=== PATIENT | male | born 1980 | race Caucasian/White ===

== ENCOUNTER 2021-08-24 06:19 | Day surgery (SDC) | payer OTHER ==
[~2021-08-24] VITALS: Ht 175.3 cm; Wt 99.3 kg
[~2021-08-24 06:19] MED LIST: LISI20 PO; Percocet 5-3251 EACH PO
[2021-08-24] MEDS ORDERED: Lisinopril2.5 MG PO (06:32)
--- NOTE | 2021-08-24 07:36 | NUR ---
08/24/21 0736 Donis Baez BUPIVACAINE 0.5% 30 MLS MIXED W/ 0.15 ML EPI PER ORDER TO CONSTITUTE BUPIVACAINE 0.5% 1:200,000 FOR INJECTION AT OPSITE BY DR ARCE. 30 MLS LOCAL INJECTED.
== END 2021-08-24 08:48 | disposition home or self-care (01) ==
LOC: ORSCSDS 06:19
PROVIDERS: Podiatrist Foot & Ankle Surgery
PROC: 0LBS0ZZ Excision of Right Ankle Tendon, Open Approach (ICD-10-PCS; principal; 2021-08-24 07:30)
DX: M67.471 Ganglion, right ankle and foot (principal); I10 Essential (primary) hypertension; Z79.899 Other long term (current) drug therapy; E66.9 Obesity, unspecified; Z68.33 Body mass index [BMI] 33.0-33.9, adult
CPT/HCPCS: 88304; J0171; J0690; J1100; J1885; J2250; J2405; J2704; J3010; J7120

== ENCOUNTER → 2023-08-12 | Outpatient (CLI) | payer OTHER ==
[~2023-08-12] MED LIST changes: +Lisinopril2.5 MG PO
[2023-08-12 10:44] LABS: BASOPHILS ABSOLUTE AUTO 0.05 K/mm3 (0.00-0.23); BASOPHILS PERCENT AUTO 1 % (0-2); EOSINOPHILS ABSOLUTE AUTO 0.18 K/mm3 (0.00-0.68); EOSINOPHILS PERCENT AUTO 5 % (0-6); Hematocrit 39.3 % (37.0-53.0); Hemoglobin 14.1 g/dL (13.5-17.5); IMMATURE GRAN ABSOLUTE AUTO 0.07 K/mm3 (0.00-0.10); IMMATURE GRAN PERCENT AUTO 2 % (0-1); LYMPHOCYTES ABSOLUTE AUTO 0.88 K/mm3 (0.84-5.20); LYMPHOCYTES PERCENT AUTO 23 % (21-46); MONOCYTES ABSOLUTE AUTO 0.43 K/mm3 (0.16-1.47); MONOCYTES PERCENT AUTO 11 % (4-13); Mean Corpuscular HGB 31.5 pg (26.0-34.0); Mean Corpuscular HGB Conc 35.9 g/dL (31.5-36.5); Mean Corpuscular Volume 88 fL (80-100); Mean Platelet Volume 8.4 fL (9.1-12.4); NEUTROPHILS PERCENT AUTO 59 % (41-73); Platelet Count 265 K/mm3 (150-400); RDW Standard Deviation 35.1 fL (35.1-46.3); Red Blood Cell Count 4.47 M/mm3 (4.30-5.90); White Blood Cell Count 3.91 K/mm3 (4.00-11.30)
[2023-08-12 11:08] LABS: Albumin/Globulin Ratio 1.2 (0.8-1.8); Bilirubin, Total 0.4 mg/dL (0.1-1.0); Calcium, Blood 9.2 mg/dL (8.5-10.1); Creatinine, Blood 1.15 mg/dL (0.60-1.20); Globulin, Blood 3.4 g/dL (2.2-4.0); Potassium, Blood 4.5 mmol/L (3.5-5.5); Thyroid Stimulating Hormone 0.951 uIU/mL (0.360-4.800); Total Protein, Blood 7.4 g/dL (6.4-8.2)
== END ==
LOC: LAB 10:40 → LAB SHORT 10:40
PROVIDERS: Physician Assistant
DX: R53.83 Other fatigue (principal)
CPT/HCPCS: 80053; 84443; 84550; 85025; 85651; 86140

== ENCOUNTER 2024-05-30 19:23 | Emergency (ER) | payer OTHER ==
[~2024-05-30] VITALS: Ht 175.3 cm; Wt 95.2 kg
[2024-05-30 20:08] LABS: BASOPHILS ABSOLUTE AUTO 0.05 K/mm3 (0.00-0.23); BASOPHILS PERCENT AUTO 1 % (0-2); EOSINOPHILS ABSOLUTE AUTO 0.15 K/mm3 (0.00-0.68); EOSINOPHILS PERCENT AUTO 2 % (0-6); Hematocrit 43.4 % (37.0-53.0); Hemoglobin 15.1 g/dL (13.5-17.5); IMMATURE GRAN ABSOLUTE AUTO 0.02 K/mm3 (0.00-0.10); IMMATURE GRAN PERCENT AUTO 0 % (0-1); LYMPHOCYTES ABSOLUTE AUTO 1.86 K/mm3 (0.84-5.20); LYMPHOCYTES PERCENT AUTO 23 % (21-46); MONOCYTES ABSOLUTE AUTO 0.63 K/mm3 (0.16-1.47); MONOCYTES PERCENT AUTO 8 % (4-13); Mean Corpuscular HGB 30.6 pg (26.0-34.0); Mean Corpuscular HGB Conc 34.8 g/dL (31.5-36.5); Mean Corpuscular Volume 88 fL (80-100); NEUTROPHILS ABSOLUTE AUTO 5.37 K/mm3 (1.96-9.15); NEUTROPHILS PERCENT AUTO 67 % (41-73); Platelet Count 243 K/mm3 (150-400); RDW Coefficient Variation 11.4 % (11.7-14.2); RDW Standard Deviation 36.6 fL (35.1-46.3); Red Blood Cell Count 4.93 M/mm3 (4.30-5.90); White Blood Cell Count 8.08 K/mm3 (4.00-11.30)
[2024-05-30 20:28] LABS: Albumin, Blood 4.2 g/dL (3.4-5.0); Albumin/Globulin Ratio 1.4 (0.8-1.8); Bilirubin, Total 0.3 mg/dL (0.1-1.0); Bun/Creatinine Ratio 18.1 (12.0-20.0); Calcium, Blood 9.3 mg/dL (8.5-10.1); Creatinine, Blood 0.89 mg/dL (0.60-1.20); Globulin, Blood 3.1 g/dL (2.2-4.0); Potassium, Blood 3.8 mmol/L (3.5-5.5); Total Protein, Blood 7.3 g/dL (6.4-8.2)
[2024-05-30] MEDS ORDERED: Ketorolac Tromethamine 15mg Vial IV ONE (22:40)
[2024-05-30] MEDS ORDERED: Doxycycline Hyclate 100 MG TAB PO ONE (22:40)
[2024-05-30 23:15] VITALS: BP 118/90
[2024-05-30] MEDS ORDERED: DOXY100 PO (23:25)
[2024-05-30] MEDS ORDERED: IBUP600 PO (23:25)
== END 2024-05-30 23:38 | disposition home or self-care (01) ==
LOC: ER 19:23
PROVIDERS: Student in an Organized Health Care Education/Training Program
DX: R07.81 Pleurodynia (principal); J18.1 Lobar pneumonia, unspecified organism; Z88.5 Allergy status to narcotic agent; Z79.899 Other long term (current) drug therapy; I10 Essential (primary) hypertension; Z87.891 Personal history of nicotine dependence
CPT/HCPCS: 71046; 80053; 83690; 84484; 85025; 93005; 93010; 96374; 99285-25; A9270; J1885

== ENCOUNTER → 2024-07-14 | Outpatient (CLI) | payer OTHER ==
[~2024-07-14] MED LIST changes: +DOXY100 PO; +IBUP600 PO
[2024-07-14 18:36] LABS: BASOPHILS ABSOLUTE AUTO 0.04 K/mm3 (0.00-0.23); BASOPHILS PERCENT AUTO 1 % (0-2); EOSINOPHILS PERCENT AUTO 2 % (0-6); Hematocrit 43.2 % (37.0-53.0); Hemoglobin 15.3 g/dL (13.5-17.5); IMMATURE GRAN ABSOLUTE AUTO 0.01 K/mm3 (0.00-0.10); IMMATURE GRAN PERCENT AUTO 0 % (0-1); LYMPHOCYTES PERCENT AUTO 35 % (21-46); MONOCYTES ABSOLUTE AUTO 0.42 K/mm3 (0.16-1.47); MONOCYTES PERCENT AUTO 7 % (4-13); Mean Corpuscular HGB 31.2 pg (26.0-34.0); Mean Corpuscular HGB Conc 35.4 g/dL (31.5-36.5); Mean Corpuscular Volume 88 fL (80-100); Mean Platelet Volume 8.8 fL (9.1-12.4); NEUTROPHILS ABSOLUTE AUTO 3.27 K/mm3 (1.96-9.15); NEUTROPHILS PERCENT AUTO 55 % (41-73); Platelet Count 235 K/mm3 (150-400); RDW Coefficient Variation 11.7 % (11.7-14.2); RDW Standard Deviation 37.2 fL (35.1-46.3); White Blood Cell Count 5.94 K/mm3 (4.00-11.30)
[2024-07-14 18:43] LABS: Bun/Creatinine Ratio 19.6 (12.0-20.0); Calcium, Blood 9.7 mg/dL (8.5-10.1); Creatinine, Blood 1.07 mg/dL (0.60-1.20); Potassium, Blood 4.1 mmol/L (3.5-5.5)
== END | disposition home or self-care (01) ==
LOC: LAB 18:32 → LAB SHORT 18:32
PROVIDERS: Physician Assistant Surgical
DX: R07.89 Other chest pain (principal)
CPT/HCPCS: 80048; 84484; 85025

== ENCOUNTER 2025-05-27 10:06 | Observation (INO) | payer OTHER ==
[2025-05-27] VITALS (14 sets, daily range): BP systolic 99–151; BP diastolic 62–83
[~2025-05-27] VITALS: Ht 175.3 cm; Wt 96.6 kg
[~2025-05-27 10:06] MED LIST changes: -AMOCLA875 PO; -OXYC5 PO
[2025-05-27] MEDS ORDERED: Ondansetron HCl 2 MG / ML 2ML Vial IV PRN ×2 (10:45→14:40)
[2025-05-27] MEDS ORDERED: FLU VACC TS2025-26(6MOS UP)/PF 45 MCG/0.5 ML SYRINGE IM SCH (10:45)
[2025-05-27] MEDS ORDERED: FentaNYL Citrate 50 MCG/ML 2 ML Injection IV PRN ×3 (10:45→14:40)
[2025-05-27] MEDS ORDERED: Ampicillin Sod/Sulbactam Sod 3 GM in NS 100 ML IV SCH (11:00)
[2025-05-27] MEDS ORDERED: Bupivacaine 0.5% HCl 5 MG/ML 30MLVIAL ONE (13:39)
[2025-05-27] MEDS ORDERED: Rocuronium Bromide 10 MG/ML 5ML Injection IV ONE (13:43)
[2025-05-27] MEDS ORDERED: FentaNYL Citrate 50 MCG/ML 2 ML Injection ONE (13:43)
--- NOTE | 2025-05-27 13:43 | NUR ---
FLUSHED LAC IV SITE WITH 10NS/PATENT.
[2025-05-27] MEDS ORDERED: Midazolam HCl 1MG / ML 2ML Vial ONE (13:44)
[2025-05-27] MEDS ORDERED: Ondansetron HCl 2 MG / ML 2ML Vial ONE (14:07)
[2025-05-27] MEDS ORDERED: Dexamethasone Sod Phos 10 MG/ML 1ML VIAL ONE (14:07)
[2025-05-27] MEDS ORDERED: Ketorolac Tromethamine 30mg Vial ONE (14:07)
[2025-05-27] MEDS ORDERED: Sugammadex Sodium 200 MG/2ML SDV (100 MG/ML) ONE (14:15)
[2025-05-27] MEDS ORDERED: HYDROmorphone HCl/Pf 1MG SYR IV PRN ×2 (14:40)
[2025-05-27] MEDS ORDERED: HYDROmorphone HCl/Pf 1MG SYR ONE (14:41)
--- NOTE | 2025-05-27 18:56 | NUR ---
SHIFT SUMMARY POD0 LAP APPY, A/OX4, VSS, TOLERATING PO, PAIN MANAGED PER EMAR, IV ABX ORDERED, PT HAD LOW GRADE FEVER THIS EVENING WITH TMAX 100.0. DISCUSSED WITH PATIENT AND HE EXPRESSED DESIRE TO STAY AND DISCHARGE IN THE AM. LAP SITES C/D/I EXCEPT AMBILICAL LAP SITE THAT HAD A SCANT AMT OF DRAINAGE. NO ACUTE EVENTS THIS SHIFT, CALL LIGHT IN REACH.
[2025-05-28 03:50] VITALS: BP 102/64
[2025-05-28 04:40] LABS: BASOPHILS ABSOLUTE AUTO 0.03 K/mm3 (0.00-0.23); BASOPHILS PERCENT AUTO 0 % (0-2); EOSINOPHILS ABSOLUTE AUTO 0.00 K/mm3 (0.00-0.68); EOSINOPHILS PERCENT AUTO 0 % (0-6); Hematocrit 37.3 % (37.0-53.0); Hemoglobin 13.2 g/dL (13.5-17.5); IMMATURE GRAN ABSOLUTE AUTO 0.02 K/mm3 (0.00-0.10); IMMATURE GRAN PERCENT AUTO 0 % (0-1); LYMPHOCYTES ABSOLUTE AUTO 0.92 K/mm3 (0.84-5.20); LYMPHOCYTES PERCENT AUTO 10 % (21-46); MONOCYTES ABSOLUTE AUTO 0.84 K/mm3 (0.16-1.47); MONOCYTES PERCENT AUTO 9 % (4-13); Mean Corpuscular HGB Conc 35.4 g/dL (31.5-36.5); Mean Corpuscular Volume 91 fL (80-100); NEUTROPHILS ABSOLUTE AUTO 7.77 K/mm3 (1.96-9.15); NEUTROPHILS PERCENT AUTO 81 % (41-73); NRBC ABSOLUTE 0.00 K/mm3 (0.00-0.02); NRBC Auto 0.0 /100 WBC (0.0-0.2); Platelet Count 180 K/mm3 (150-400); RDW Coefficient Variation 11.1 % (11.7-14.2); RDW Standard Deviation 37.0 fL (35.1-46.3)
[2025-05-28 05:14] LABS: Anion Gap 7.0 mmol/L (3-11); Blood Urea Nitrogen 14.0 mg/dL (8-24); CO2, Blood 29.0 mmol/L (21-32); Calcium, Blood 8.6 mg/dL (8.5-10.1); Chloride, Blood 99.0 mmol/L (98-108); Creatinine, Blood 1.23 mg/dL (0.60-1.20); Glucose, Blood 132.0 mg/dL (70-99); Potassium, Blood 4.1 mmol/L (3.5-5.5); Sodium, Blood 131.0 mmol/L (136-145)
[2025-05-28 05:22] LABS: Source, Urine Clean Catch
--- NOTE | 2025-05-28 05:26 | NUR ---
SHIFT SUMMARY AOX4. POD 1-LAP APPY. x3 LAP SITES C/D/I W/TISSUE ADHESIVE, NO DRAINAGE NOTED. SCANT AMOUNT DRIED BLOOD AROUND UMBILICUS INCISION NOTED, UNCHANGED SINCE BEGINNING OF SHIFT. PT DENIES N/V, TOLERATING REG DIET. REPORTS 9/10 PAIN W/MOVEMENT OTHERWISE STATES PAIN 4/10. REPORTED INCREASED "PRESSURE" & ASKED IF THERE WAS ANYTHING HE COULD TAKE. DR JARAMILLO ORDERED SIMETHICONE FOR GAS & SINCE BEING MEDICATED HAS REPORTED GAS RELIEF & STATES PAIN/DISCOMFORT IS MORE TOLERABLE & HAS PASSED FLATUS A COUPLE TIMES. ACTIVE BT. REPORTS FOUL DARK COLOR URINE, STATES LOW BACK FLANK PAIN-INFORMED DR HAYWARD & HE ORDERED UA. VSS, AFEBRILE T/O NIGHT. CALL LIGHT IN REACH & PT ABLE TO MAKE NEEDS KNOWN.
[2025-05-28 05:37] LABS: Bilirubin, Urine Neg (Neg); Color, Urine Yellow (P-Yellow); Glucose Qualitative, Urine Neg (Neg); Ketones, Urine Neg (Neg); Leukocyte Esterase, Urine Neg (Neg); Protein, Urine 1+ (Neg); Specific Gravity, Urine 1.020 (1.003-1.022); Urobilinogen, Urine NORM (Normal)
[2025-05-28 07:22] VITALS: BP 108/72
[2025-05-28] MEDS ORDERED: AMOCLA875 PO (08:08)
[2025-05-28] MEDS ORDERED: OXYC5 PO (08:08)
--- NOTE | 2025-05-28 11:56 | NUR ---
DISCHARGE SUMMARY POD1 LAP APPY, TEMPS IMPROVED OVER NIGHT, HOSPITALIST ROUNDED ON THIS AM AND PATIENT LEFT WITHOUT GOING OVER DISCHARGE PAPERWORK. DISCHARGE INSTRUCTIONS AND INFORMATION HAD BEEN DISCUSSED WITH THE PATIENT BY THIS RN YESTERDAY COVERING HOME CARE AND MEDICATIONS.
== END 2025-05-28 10:28 | disposition home or self-care (01) ==
LOC: SURS 10:06
PROVIDERS: Student in an Organized Health Care Education/Training Program; Surgery; ADMIT Family Medicine
PROC: 0DTJ4ZZ Resection of Appendix, Percutaneous Endoscopic Approach (ICD-10-PCS; principal; 2025-05-27 14:00)
DX: K35.32 Acute appendicitis with perforation, localized peritonitis, and gangrene, without abscess (principal); K38.1 Appendicular concretions; L04.1 Acute lymphadenitis of trunk; I10 Essential (primary) hypertension; E78.5 Hyperlipidemia, unspecified; E87.1 Hypo-osmolality and hyponatremia; R94.4 Abnormal results of kidney function studies; D72.829 Elevated white blood cell count, unspecified; Z87.891 Personal history of nicotine dependence; Z79.899 Other long term (current) drug therapy; Z88.5 Allergy status to narcotic agent; Z88.8 Allergy status to other drugs, medicaments and biological substances
CPT/HCPCS: 36415; 80048; 85025; 88304; A9270; J0295; J1100; J1171; J1885; J2250; J2405; J2704; J3010; J7120

== ENCOUNTER → 2025-05-27 | Outpatient (CLI) | payer OTHER ==
[~2025-05-27] MED LIST changes: +AMOCLA875 PO; +OXYC5 PO
[2025-05-27 08:15] LABS: BASOPHILS ABSOLUTE AUTO 0.03 K/mm3 (0.00-0.23); BASOPHILS PERCENT AUTO 0 % (0-2); EOSINOPHILS ABSOLUTE AUTO 0.12 K/mm3 (0.00-0.68); EOSINOPHILS PERCENT AUTO 1 % (0-6); Hematocrit 41.9 % (37.0-53.0); Hemoglobin 15.0 g/dL (13.5-17.5); IMMATURE GRAN ABSOLUTE AUTO 0.03 K/mm3 (0.00-0.10); IMMATURE GRAN PERCENT AUTO 0 % (0-1); LYMPHOCYTES ABSOLUTE AUTO 0.99 K/mm3 (0.84-5.20); LYMPHOCYTES PERCENT AUTO 8 % (21-46); MONOCYTES ABSOLUTE AUTO 0.92 K/mm3 (0.16-1.47); MONOCYTES PERCENT AUTO 8 % (4-13); Mean Corpuscular HGB Conc 35.8 g/dL (31.5-36.5); Mean Corpuscular Volume 88 fL (80-100); NEUTROPHILS ABSOLUTE AUTO 9.81 K/mm3 (1.96-9.15); NEUTROPHILS PERCENT AUTO 82 % (41-73); NRBC ABSOLUTE 0.00 K/mm3 (0.00-0.02); NRBC Auto 0.0 /100 WBC (0.0-0.2); Platelet Count 211 K/mm3 (150-400); RDW Coefficient Variation 11.1 % (11.7-14.2); RDW Standard Deviation 35.8 fL (35.1-46.3)
[2025-05-27 08:36] LABS: Alanine Aminotransfer (ALT/SGP 63.0 U/L (12-78); Albumin, Blood 4.1 g/dL (3.4-5.0); Albumin/Globulin Ratio 1.2 (0.8-1.8); Anion Gap 11.0 mmol/L (3-11); Aspartate Aminotrans (AST/SGOT 26.0 U/L (12-37); Bilirubin, Total 0.7 mg/dL (0.1-1.0); Blood Urea Nitrogen 10.0 mg/dL (8-24); CO2, Blood 29.0 mmol/L (21-32); Calcium, Blood 9.4 mg/dL (8.5-10.1); Chloride, Blood 101.0 mmol/L (98-108); Creatinine, Blood 1.0 mg/dL (0.60-1.20); Globulin, Blood 3.4 g/dL (2.2-4.0); Glucose, Blood 116.0 mg/dL (70-99); Potassium, Blood 4.2 mmol/L (3.5-5.5); Sodium, Blood 137.0 mmol/L (136-145); Total Protein, Blood 7.5 g/dL (6.4-8.2)
== END | disposition home or self-care (01) ==
LOC: LAB 08:09 → LAB SHORT 08:09
PROVIDERS: Physician Assistant
DX: R10.31 Right lower quadrant pain (principal)
CPT/HCPCS: 80053; 85025

== ENCOUNTER 2025-05-29 21:09 | Inpatient (IN) | payer OTHER ==
[~2025-05-29] VITALS: Ht 175.3 cm; Wt 97.4 kg
[~2025-05-29 21:09] MED LIST changes: +AMOCLA875 PO; +OXYC5 PO
[2025-05-29 22:32] LABS: BASOPHILS ABSOLUTE AUTO 0.04 K/mm3 (0.00-0.23); BASOPHILS PERCENT AUTO 0 % (0-2); EOSINOPHILS ABSOLUTE AUTO 0.19 K/mm3 (0.00-0.68); EOSINOPHILS PERCENT AUTO 2 % (0-6); Hematocrit 37.2 % (37.0-53.0); Hemoglobin 13.4 g/dL (13.5-17.5); IMMATURE GRAN ABSOLUTE AUTO 0.04 K/mm3 (0.00-0.10); IMMATURE GRAN PERCENT AUTO 0 % (0-1); LYMPHOCYTES ABSOLUTE AUTO 0.94 K/mm3 (0.84-5.20); LYMPHOCYTES PERCENT AUTO 10 % (21-46); MONOCYTES ABSOLUTE AUTO 0.52 K/mm3 (0.16-1.47); MONOCYTES PERCENT AUTO 6 % (4-13); Mean Corpuscular HGB Conc 36.0 g/dL (31.5-36.5); Mean Corpuscular Volume 87 fL (80-100); NEUTROPHILS ABSOLUTE AUTO 7.52 K/mm3 (1.96-9.15); NEUTROPHILS PERCENT AUTO 81 % (41-73); NRBC ABSOLUTE 0.00 K/mm3 (0.00-0.02); NRBC Auto 0.0 /100 WBC (0.0-0.2); RDW Coefficient Variation 11.1 % (11.7-14.2); RDW Standard Deviation 35.8 fL (35.1-46.3)
[2025-05-29 22:33] LABS: Platelet Count 207 K/mm3 (150-400)
[2025-05-29 22:46] LABS: Alanine Aminotransfer (ALT/SGP 32.0 U/L (12-78); Albumin, Blood 3.1 g/dL (3.4-5.0); Albumin/Globulin Ratio 0.7 (0.8-1.8); Anion Gap 10.0 mmol/L (3-11); Aspartate Aminotrans (AST/SGOT 22.0 U/L (12-37); Bilirubin, Total 0.8 mg/dL (0.1-1.0); Blood Urea Nitrogen 13.0 mg/dL (8-24); CO2, Blood 22.0 mmol/L (21-32); Calcium, Blood 9.1 mg/dL (8.5-10.1); Chloride, Blood 102.0 mmol/L (98-108); Creatinine, Blood 0.94 mg/dL (0.60-1.20); Globulin, Blood 4.2 g/dL (2.2-4.0); Glucose, Blood 117.0 mg/dL (70-99); Potassium, Blood 3.7 mmol/L (3.5-5.5); Sodium, Blood 130.0 mmol/L (136-145); Total Protein, Blood 7.3 g/dL (6.4-8.2)
[2025-05-29] MEDS ORDERED: Ketorolac Tromethamine 15mg Vial IV ONE (22:55)
[2025-05-30] MEDS ORDERED: Ampicillin Sod/Sulbactam Sod 1.5 GM in NS 100 ML IV ONE (00:45)
[2025-05-30] MEDS ORDERED: Piperacillin/Tazobactam Sod 2.25 GM in NS 50 ML IV ONE (01:10)
[2025-05-30 02:49] VITALS: BP 125/76
--- NOTE | 2025-05-30 05:37 | NUR ---
LICENSING REGISTRATION EXAMINER SUMMARY PT IS A NEW ADMIT FROM THE ED TONIGHT. PT CAME IN WITH SOME INCREASED REDNESS AND SWELLING TO HIS ABD SURGICAL INCISIONS. PT IS POD 3 FOR LAP APPY. UMBILICAL LAP SITE WITH SOME MILD REDNESS AND TENDERNESS. OTHER 2 LAP SITES WITH NO REDNESS OR SWELLING. PT AAOX4 AND INDEPENDENT IN ROOM. PT RECIEVED ZOSYN AND TORADOL IN THE ED PRIOR TO ARRIVAL AND STATES HIS PAIN IS WELL CONTROLLED. PT TO HAVE CONSULT WITH SURGEON LATER TODAY, HAS BEEN NPO SINCE ARRIVAL TO UNIT. TL HANCOCK.
[2025-05-30 06:56] VITALS: BP 136/79
[2025-05-30] MEDS ORDERED: NS 1,000 ML IV SCH (08:20)
[2025-05-30] MEDS ORDERED: FLU VACC TS2025-26(6MOS UP)/PF 45 MCG/0.5 ML SYRINGE IM SCH (08:20)
[2025-05-30] MEDS ORDERED: Ondansetron HCl 2 MG / ML 2ML Vial IV PRN (08:20)
[2025-05-30] MEDS ORDERED: Piperacillin/Tazobactam Sod 3.375 GM in NS 100 ML IV SCH (08:30)
[2025-05-30] MEDS ORDERED: Ketorolac Tromethamine 30mg Vial IV PRN (08:30)
--- NOTE | 2025-05-30 08:52 | NUR ---
DR JARAMILLO IN TO SEE PT.
[2025-05-30] MEDS ORDERED: Enoxaparin 40 MG/0.4 ML SYR SC SCH (09:00)
[2025-05-30] MEDS ORDERED: NS 250 ML IV PRN (11:30)
[2025-05-30 14:52] VITALS: BP 132/82
--- NOTE | 2025-05-30 15:29 | NUR ---
SHIFT SUMMARY PT IS A/OX4. TOLERATING INTAKE, VOIDING WELL, PASSING GAS. DENIES N/V. IND IN ROOM, AMBULATING HALLS. SURGICAL SITES C/D/I. MINIMAL REDNESS AROUND LAP SITES. PLAN IS FOR PT TO DC TOMORROW AFTER RECIEVING IV ANTIBIOTICS. CALL LIGHT IN REACH, BED IN LOWEST POSITION, ABLE TO MAKE NEEDS KNOWN.
--- NOTE | 2025-05-30 18:14 | NUR ---
NO ACUTE CHANGES WILL REPORT TO ONCHANNAH RN
[2025-05-30 20:04] VITALS: BP 139/78
[2025-05-31 04:14] VITALS: BP 144/97
--- NOTE | 2025-05-31 05:14 | NUR ---
FIRE TENDER SUMMARY REDNESS TO UMBILICAL LAP SITE IMPROVED AND PT REPORTS PAIN IS OVERALL MUCH BETTER COMPARED TO WHEN HE WAS FIRST ADMITTED. PAIN CONTROLLED WITH TORADOL. CONTINUES IV ZOSYN Q6. PLAN IS FOR PT TO DC LATER TODAY. TL HANCOCK.
[2025-05-31 06:02] LABS: BASOPHILS ABSOLUTE AUTO 0.04 K/mm3 (0.00-0.23); BASOPHILS PERCENT AUTO 1 % (0-2); EOSINOPHILS ABSOLUTE AUTO 0.41 K/mm3 (0.00-0.68); EOSINOPHILS PERCENT AUTO 7 % (0-6); Hematocrit 36.4 % (37.0-53.0); Hemoglobin 13.0 g/dL (13.5-17.5); IMMATURE GRAN ABSOLUTE AUTO 0.05 K/mm3 (0.00-0.10); IMMATURE GRAN PERCENT AUTO 1 % (0-1); LYMPHOCYTES ABSOLUTE AUTO 0.96 K/mm3 (0.84-5.20); LYMPHOCYTES PERCENT AUTO 15 % (21-46); MONOCYTES ABSOLUTE AUTO 0.70 K/mm3 (0.16-1.47); MONOCYTES PERCENT AUTO 11 % (4-13); Mean Corpuscular HGB Conc 35.7 g/dL (31.5-36.5); Mean Corpuscular Volume 89 fL (80-100); NEUTROPHILS ABSOLUTE AUTO 4.12 K/mm3 (1.96-9.15); NEUTROPHILS PERCENT AUTO 66 % (41-73); NRBC ABSOLUTE 0.00 K/mm3 (0.00-0.02); NRBC Auto 0.0 /100 WBC (0.0-0.2); Platelet Count 195 K/mm3 (150-400); RDW Coefficient Variation 11.4 % (11.7-14.2); RDW Standard Deviation 36.7 fL (35.1-46.3)
[2025-05-31 06:28] LABS: Alanine Aminotransfer (ALT/SGP 25.0 U/L (12-78); Albumin, Blood 2.7 g/dL (3.4-5.0); Albumin/Globulin Ratio 0.7 (0.8-1.8); Anion Gap 11.0 mmol/L (3-11); Aspartate Aminotrans (AST/SGOT 15.0 U/L (12-37); Bilirubin, Total 0.5 mg/dL (0.1-1.0); Blood Urea Nitrogen 17.0 mg/dL (8-24); CO2, Blood 25.0 mmol/L (21-32); Calcium, Blood 9.2 mg/dL (8.5-10.1); Chloride, Blood 106.0 mmol/L (98-108); Creatinine, Blood 1.01 mg/dL (0.60-1.20); Globulin, Blood 4.1 g/dL (2.2-4.0); Glucose, Blood 104.0 mg/dL (70-99); Potassium, Blood 3.8 mmol/L (3.5-5.5); Sodium, Blood 138.0 mmol/L (136-145); Total Protein, Blood 6.8 g/dL (6.4-8.2)
[2025-05-31 07:43] VITALS: BP 140/78
--- NOTE | 2025-05-31 13:18 | NUR ---
discharge 1200 DOSE OF ABX COMPLETED. REVIEWED DC INSTRUCTIONS W/PT; VERBALIZED UNDERSTANDING. PT VSS. PT SIGNED DC PAPERWORK, DENYING ANY QUESTIONS. AWAITING RIDE.
[2025-05-31 13:19] VITALS: BP 145/87
--- NOTE | 2025-05-31 13:41 | NUR ---
DISCHARGED. PT DECLINED WC, ELECTING TO LEAVE UNIT BY AMBULATION. HAD POSSESSIONS AND DC PAPERWORK IN HAND, ACCOMPANIED BY RIDE.
== END 2025-05-31 13:42 | disposition home or self-care (01) | DRG 863 ==
LOC: ER 21:09 → SURS 05-30 01:17
PROVIDERS: Physician Assistant; ADMIT Surgery
DX: T81.49XA Infection following a procedure, other surgical site, initial encounter (principal); L03.316 Cellulitis of umbilicus; I10 Essential (primary) hypertension; Z88.5 Allergy status to narcotic agent; Z79.2 Long term (current) use of antibiotics; Z79.899 Other long term (current) drug therapy; Z87.891 Personal history of nicotine dependence; Z88.8 Allergy status to other drugs, medicaments and biological substances; Z98.890 Other specified postprocedural states; Y83.8 Other surgical procedures as the cause of abnormal reaction of the patient, or of later complication, without mention of misadventure at the time of the procedure
CPT/HCPCS: 36415; 74177; 80053; 83605; 85025; 96374-59; 99284-25; J1650; J1885; J2543; J7050; Q9967